=== PATIENT | female | born 1970 | race Caucasian/White ===

== ENCOUNTER 2024-10-06 21:30 | Emergency (ER) | payer SELFPAY ==
[2024-10-06 21:53] VITALS: BP 129/68; PULSE 90; RESP 16; TEMP 98.6; BMI 27.8
[2024-10-06 22:19] LABS: BASO % 0.4 % (0-2.0); EOS % 1.5 % (0-4.5); HEMATOCRIT 37.1 % (32.4-45.2); HEMOGLOBIN 12.2 GM/dL (10.7-15.3); LYMPH % 33.8 % (8-40); MCH 25.7 pg (25.7-33.7); MEAN CELL VOLUME 78.1 fl (80-96); MEAN PLT VOLUME 7.6 fl (7.5-11.1); MONO % 7.2 % (3.8-10.2); NEUT % 57.1 % (42.8-82.8); PLATELET COUNT 251 10^3/uL (134-434); RBC 4.75 M/mm3 (3.60-5.2); RDW 13.9 % (11.6-15.6)
[2024-10-06 22:20] LABS: INR 0.95 (0.83-1.09); PROTHROMBIN TIME (PATIENT) 10.9 SEC (9.7-13.0)
[2024-10-06 22:23] LABS: ACTIVATED PTT 26.5 SECONDS (25.2-36.5)
[2024-10-06 22:31] LABS: POTASSIUM 3.6 mmol/L (3.5-5.1)
[2024-10-06 22:34] LABS: CALCIUM 9.3 mg/dL (8.5-10.1)
[2024-10-06 22:35] LABS: BLOOD UREA NITROGEN 13.7 mg/dL (7-18)
[2024-10-06 22:38] LABS: BILIRUBIN,TOTAL 0.3 mg/dL (0.2-1); TOT PROT 8.3 g/dl (6.4-8.2)
[2024-10-06 22:43] LABS: N-TERMINAL BNP 95.3 pg/ml (5-125)
== END 2024-10-06 23:31 | disposition home or self-care (01) ==
LOC: JER 21:30
DX: R53.83 Other fatigue (principal); R20.2 Paresthesia of skin; R20.0 Anesthesia of skin; R29.898 Other symptoms and signs involving the musculoskeletal system; Z20.822 Contact with and (suspected) exposure to COVID-19
CPT/HCPCS: 0241U-QW; 36415; 70450-TC; 71046-TC-FY; 80053; 83735; 83880; 84484; 85025; 85610; 85730; 93005; 93010; 99285-25